=== PATIENT | female | born 1980 | race Caucasian/White ===

== ENCOUNTER → 2017-06-19 | Outpatient (CLI) | payer OTHER ==
[2017-06-19 12:19] LABS: HEMATOCRIT 35.1 % (37-47); HEMOGLOBIN 10.7 g/dL (12.0-16.0); MEAN CELL VOLUME 75.5 fL (80-100); MEAN CORPUSCULAR HGB CONC 30.5 g/dl (32-36); MEAN PLATELET VOLUME 10.5 fL (7.4-10.4); PLATELET COUNT 318 K/uL (130-400); RED CELL DISTRIBUTION WIDTH CV 16.6 % (11.5-14.5); RED CELL DISTRIBUTION WIDTH SD 45.4 fL (36.4-46.3); WHITE BLOOD COUNT 5.61 K/uL (4.8-10.8)
[2017-06-19 13:58] LABS: BLOOD UREA NITROGEN 6 mg/dl (7-18); CALCIUM 9.1 mg/dl (8.5-10.1); CARBON DIOXIDE 26 mmol/L (21-32); CHOLESTEROL 166 mg/dl (0-200); CREATININE 0.79 mg/dl (0.60-1.20); GLUCOSE 80 mg/dl (70-99); POTASSIUM 4.3 mmol/L (3.5-5.1); SODIUM 137 mmol/L (136-145)
[2017-06-19 14:06] LABS: LDL CHOLESTEROL CALCULATED 99 mg/dl
== END | disposition home or self-care (01) ==
LOC: C.LABPBG 10:52
PROVIDERS: ATTEND Family Medicine
DX: Z13.220 Encounter for screening for lipoid disorders (principal); R53.83 Other fatigue; Z00.00 Encounter for general adult medical examination without abnormal findings

== ENCOUNTER → 2017-06-22 | Outpatient (CLI) | payer OTHER ==
[2017-06-22 17:36] LABS: BASO % 1.5 %; BASO ABS # 0.06 K/uL (0-0.2); EOS % 3.1 %; EOS ABS # 0.12 K/uL (0-0.5); HEMATOCRIT 35.1 % (37-47); HEMOGLOBIN 10.6 g/dL (12.0-16.0); LYMPH % 34.3 %; LYMPH ABS # 1.33 K/uL (1.2-3.4); MEAN CELL VOLUME 75.8 fL (80-100); MEAN CORPUSCULAR HEMOGLOBIN 22.9 pg (25-34); MEAN CORPUSCULAR HGB CONC 30.2 g/dl (32-36); MEAN PLATELET VOLUME 10.4 fL (7.4-10.4); MONO % 18.3 %; MONO ABS # 0.71 K/uL (0.11-0.59); NEUT % 42.8 %; NEUT ABS # 1.66 K/uL (1.4-6.5); PLATELET COUNT 316 K/uL (130-400); RED CELL DISTRIBUTION WIDTH CV 16.9 % (11.5-14.5); RED CELL DISTRIBUTION WIDTH SD 46.8 fL (36.4-46.3); RETIC COUNT % 0.9 % (0.5-2.0); WHITE BLOOD COUNT 3.88 K/uL (4.8-10.8)
== END | disposition home or self-care (01) ==
LOC: C.LABPBG 14:46
PROVIDERS: ATTEND Family Medicine
DX: D64.9 Anemia, unspecified (principal)

== ENCOUNTER 2017-10-05 12:00 | Emergency (ER) | payer OTHER ==
[~2017-10-05] VITALS: Ht 170.2 cm; Wt 50.6 kg
[2017-10-05 12:04] VITALS: TEMP 36.5; Ht 170.2 cm; Wt 50.6 kg
[2017-10-05] MEDS ORDERED: AZITTAB PO (12:49)
--- NOTE | 2017-10-05 12:49 | DIAGNOSTIC IMAGING REPORT ---
CHEST ONE VIEW PORTABLE CLINICAL HISTORY: Chest pain. Cough. COMPARISON STUDY: Chest radiograph June 09, 2014 and June 10, 2014. FINDINGS: There is possible lung hyperexpansion. Faint nodular densities projecting over each midlung represent nipple shadows as shown on prior exam. Cardiomediastinal is unremarkable. There is no pneumothorax or pleural effusion. There is no evidence for pulmonary edema. IMPRESSION: No acute cardiopulmonary findings. Electronically signed by: Neftali Schwarz M.D. 10/05/2017 12:48 PM Dictated Date/Time: 10/05/2017 12:47 PM
--- NOTE | 2017-10-05 12:56 | EMERGENCY ROOM VISIT NOTE ---
History Report prepared by Shayan: David Maier Under the Supervision of: Dr. Tyler De La Cruz M.D. First contact with patient: 12:14 Chief Complaint: ILLNESS Stated Complaint: RUNNY NOSE, COUGH, STOMACH PAINS History of Present Illness The patient is a 37 year old female who presents to the Emergency Room with complaints of constant generalized illness beginning three days ago. Her symptoms include cough, headache, sinus congestion, runny nose, and abdominal pain. Her cough produces a yellow sputum. The patient had a sore throat initially, but this has since resolved. She denies fevers, body aches, neck pain , or SOB. She has a history of tubal ligation, but is unsure if she could be . The patient denies known sick contacts. She has a history of seasonal allergies. She is a smoker. Source of History: patient Onset: Three days ago Position: other (generalized) Quality: other (illness) Timing: constant Associated Symptoms: + headache, + sorethroat (resolved), + cough, + abdominal pain, No fevers, No neck pain, No SOB Note: Positive: sinus congestion and runny nose. Negative: body aches. Review of Systems See HPI for pertinent positives & negatives. A total of 10 systems reviewed and were otherwise negative. Past Medical & Surgical Medical Problems: (1) Mitral valve prolapse Surgical Problems: (1) S/P tubal ligation Old medical records were reviewed. Nurse's notes were reviewed and I agree with. Family History Heart disease Social History Smoking Status: Current Every Day Smoker Alcohol Use: none Marital Status: single Housing Status: lives with family Occupation Status: employed Current/Historical Medications Scheduled Azithromycin (Zithromax Z-Jesus), 0 PO UD Allergies Coded Allergies: Basil (Verified Allergy, Severe, SWELLING OF THE THROAT, 03/04/16) POLLEN (Verified Allergy, Mild, SNEEZING, EYES WATER, 03/04/16) Cat Dander (Verified Allergy, Unknown, SNEEZING,EYES WATER, 03/04/16) Physical Exam Vital Signs Date Time Temp Pulse Resp B/P (MAP) Pulse Ox O2 Delivery O2 Flow Rate FiO2 10/05/17 13:00 62 22 116/91 100 10/05/17 12:38 67 10/05/17 12:04 36.5 65 20 136/91 98 Room Air Physical Exam General: Non-ill appearing young female in no acute distress. HEENT: Normal cephalic atraumatic. Pupils are equal round and reactive to light. Extraocular movements are intact. Oropharynx is pink with moist mucous membranes. No swelling of the mouth lips or tongue. Neck: Supple with a midline trachea. No meningeal signs or stiffness, no JVD or bruits. No Stridor. Chest: Clear to auscultation bilaterally. No wheezes or rhonchi. No increased work of breathing. Heart: regular rate and rhythm. Abdomen: Soft nontender, nondistended without rebound guarding or rigidity. Extremities: No cyanosis clubbing or edema. No calf tenderness or assymetry Spine/Back. Non tender to palpation. No CVA tenderness Skin: Good turgor without rashes. Neurologic exam: Cranial nerves two through 12 are intact. Motor and sensation are intact and symmetrical throughout. Medical Decision & Procedures ER Provider Diagnostic Interpretation: Radiology results as stated below per my review and radiologist interpretation: CHEST ONE VIEW PORTABLE FINDINGS: There is possible lung hyperexpansion. Faint nodular densities projecting over each midlung represent nipple shadows as shown on prior exam. Cardiomediastinal is unremarkable. There is no pneumothorax or pleural effusion. There is no evidence for pulmonary edema. IMPRESSION: No acute cardiopulmonary findings. Electronically signed by: Neftali Schwarz M.D. 10/05/2017 12:48 PM ED Course 1217: Past medical records reviewed. The patient was evaluated in room C11B, and a complete history and physical examination were performed. 1250: Upon reevaluation, the patient is resting comfortably. I discussed the results and treatment plan with her. She verbalized agreement of the treatment plan. The patient was discharged home. Medical Decision Differentials include, but are not limited to; sinusitis, bronchitis, pneumonia , and electrolyte or metabolic abnormality. This patient comes in as described above. She has had a cough and sinus type symptoms. she looks well on exam. She is afebrile. she is nontoxic non- lethargic. she has nothing to suggest meningeal signs or stiffness. A posterior oropharynx is normal-appearing. Chest x-ray does not show acute infiltrate failure or pneumothorax and test is negative. She should continue to use her medications that she uses for seasonal allergies such as an antihistamine but was warned that these could make her groggy. I will start azithromycin Z-Jesus. She should return if: Worsening of symptoms, fever or chills, any new problems or concerns. Follow-up with her doctor this week if not better return the ER symptoms worsen. Medication Reconcilliation Current Medication List: was personally reviewed by me Blood Pressure Screening Patient's blood pressure: Elevated blood pressure Blood pressure disposition: Elevated BP felt to be situational Impression Primary Impression: Sinusitis Additional Impression: Bronchitis Scribe Attestation The scribe's documentation has been prepared under my direction and personally reviewed by me in its entirety. I confirm that the note above accurately reflects all work, treatment, procedures, and medical decision making performed by me. Departure Information Dispostion Home / Self-Care Prescriptions Azithromycin (ZITHROMAX Z-JESUS) 250 Mg Tab 0 PO UD, #1 PKT Prov: Tyler De La Cruz M.D. 10/05/17 Referrals Bryanna Borjas DO (PCP) Forms HOME CARE DOCUMENTATION FORM, IMPORTANT VISIT INFORMATION, WORK / SCHOOL INSTRUCTIONS Patient Instructions My [facility] Additional Instructions Rest. Drink plenty of fluids. Use an antihistamine for your allergies such as Benadryl or Claritin. Be careful as they can make you drowsy. Use azithromycin Z-Jesus as directedantibiotic Return if: Worsening of symptoms, shortness of breath, fever or chills, any new problems or concerns Problem Qualifiers
[2017-10-05 13:00] VITALS: BP 116/91; PULSE 62; O2SAT 100
== END 2017-10-05 13:00 | disposition home or self-care (01) ==
LOC: C.EDB 12:01 → C.EDC 13:00
DX: J40 Bronchitis, not specified as acute or chronic (principal); J32.9 Chronic sinusitis, unspecified; R03.0 Elevated blood-pressure reading, without diagnosis of hypertension; F17.200 Nicotine dependence, unspecified, uncomplicated; Z91.018 Allergy to other foods; Z91.048 Other nonmedicinal substance allergy status